=== PATIENT | female | born 1980 | race Caucasian/White ===

== ENCOUNTER 2016-04-12 16:51 | Emergency (ER) | payer OTHER ==
[2016-04-12 17:17] VITALS: BP 135/85; PULSE 76; TEMP 97.9; BMI 28.3
--- NOTE | 2016-04-12 18:29 | PDOC ---
History of Present Illness - General Chief Complaint: Urinary Problem Stated Complaint: R/O UTI Time Seen by Provider: 04/12/16 18:22 History Source: Patient Exam Limitations: No Limitations - History of Present Illness Initial Comments: 04/12/16 19:20 Chief complaint: abdomen discomfort with vaginal discharge History of present illness: Patient is a 36-year-old female with no significant medical history here today complaining of lower abdominal discomfort with vaginal discharge 3 days. Patient is pointing to pelvic area when she is says that she has lower abdominal discomfort. Patient reports that today abdominal discomfort is currently an 8 out of 10. Patient reports that she has been having pain when she is having sex recently. He reports that the vaginal discharge is not foul smelling. Patient denies any urinary symptoms, dysuria, hematuria, urgency, frequency, or any back pain, nausea, vomiting, or fever. Patient is a 3 para 3 with her last menstrual cycle on 03/22/2016. Patient reports being and having sex with her only. 04/12/16 19:24 Timing/Duration: getting worse Severity: moderate Associated Symptoms: reports: other (lower abdominal pain ) Past History - Past Medical History Allergies/Adverse Reactions: Allergies Allergy/AdvReac Type Severity Reaction Status Date / Time No Known Allergies Allergy Verified 04/12/16 17:14 Home Medications: Ambulatory Orders Doxycycline Hyclate [Vibramycin -] 100 mg PO BID #28 cap 04/12/16 Metronidazole [Flagyl -] 500 mg PO BID #28 tablet 04/12/16 Other medical history: DENIES - Reproductive History Tubal Ligation: Yes - Psycho/Social/Smoking Cessation Hx Suicidal Ideation: No Smoking History: Never smoked Information on smoking cessation initiated: No Hx Alcohol Use: No Drug/Substance Use Hx: No Review of Systems - Review of Systems Able to Perform ROS?: Yes Constitutional: No: Symptoms Reported HEENTM: No: Symptoms Reported Respiratory: No: Symptoms reported Cardiac (ROS): No: Symptoms Reported ABD/GI: Yes: Other (lower abdominal pain 5 days ) : No: Symptoms Reported Musculoskeletal: No: Symptoms Reported Integumentary: No: Symptoms Reported Neurological: No: Symptoms reported *Physical Exam - Vital Signs Last Vital Signs Temp Pulse Resp BP Pulse Ox 97.9 F 76 18 135/85 100 04/12/16 17:12 04/12/16 17:12 04/12/16 17:12 04/12/16 17:12 04/12/16 17:12 - Physical Exam General Appearance: Yes: Appropriately Dressed Respiratory/Chest: positive: Lungs Clear, Normal Breath Sounds Cardiovascular: positive: Regular Rhythm, Regular Rate, S1, S2 Female Pelvic Exam: positive: normal external exam, cervical os closed, normal adnexa, normal size ovaries, CMT, discharge (beige with clear mucous, cervix is friable), vaginal bleeding (at cervix, friable ). negative: lesions, Bartholin mass, Scalene Gland, adnexal tenderness Gastrointestinal/Abdominal: positive: Normal Bowel Sounds, Tender (suprapubic tenderness b/l ), Soft, Other (suprapubic discomfort b/l ). negative: Organomegaly, Distended, Guarding, Rebound, Spleenomegaly Musculoskeletal: positive: Other. negative: CVA Tenderness, CVA Tenderness (R) , CVA Tenderness (L), Decreased Range of Motion, Vertebral Tenderness Neurologic: positive: Alert, Normal Response Medical Decision Making - Medical Decision Making 04/12/16 18:53 Laboratory Tests Patient is a 36-year-old female with no significant medical history here today complaining of lower abdominal discomfort with vaginal discharge 3 days. Patient is pointing to pelvic area when she is says that she has lower abdominal discomfort. Patient reports that today abdominal discomfort is currently an 8 out of 10. Patient reports that she has been having pain when she is having sex recently. He reports that the vaginal discharge is not foul smelling. Patient denies any urinary symptoms, dysuria, hematuria, urgency, frequency, or any back pain, nausea, vomiting, or fever. Patient is a 3 para 3 with her last menstrual cycle on 03/22/2016. Patient reports being and having sex with her only. r/o STD r/o uti Plan: urine hcg negative urinalysis urine c & S chlamydia/GC amplification will treat for questionable chlamydia/GC PID pt. 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 04/12/16 04/12/16 15:17 15:17 Urine Color Colorless Urine Appearance Clear Urine pH 7.0 Ur Specific [place] 1.005 Urine Protein Negative Urine Glucose (UA) Negative Urine Ketones Negative Urine Blood 1+ H Urine Nitrite Negative Urine Bilirubin Negative Urine Urobilinogen Negative Ur Leukocyte Esterase 3+ H Urine HCG, Qual Negative 04/12/16 19:13 Laboratory Tests 04/12/16 15:17 Ur Leukocyte Esterase 3+ H Urine RBC 2 Urine WBC 9 Ur Epithelial Cells Few Urine Bacteria Rare 04/12/16 19:2 will treat for PID with 04/12/16 19:42 Ceftriaxone 250 mg IM Doxycycline 100 mg twice a day 14 days Flagyl 500 mg twice a day 14 days Follow-up with your dermatology sales representative within the next few days Do not engage in any sexual activities *DC/Admit/Observation/Transfer Diagnosis at time of Disposition: Pelvic inflammatory disease (PID) Diagnosis at time of Disposition: (Ruled Out): Infection within female pelvic cavity - Discharge Dispostion Disposition: HOME Condition at time of disposition: Stable - Prescriptions Prescriptions: Metronidazole [Flagyl -] 500 mg PO BID #28 tablet Doxycycline Hyclate [Vibramycin -] 100 mg PO BID #28 cap - Referrals Referrals: Lisa Rosa MD [Primary Care Provider] - - Patient Instructions Additional Instructions: Follow-up with your dermatology sales representative as soon as possible Refrain from sexual activities until cleared by your dermatology sales representative to resume Have your evaluated for possible actually sexually transmitted diseases Current emergency room if symptoms worsen Patient voiced understanding of discharge instructions and all questions were answered
[2016-04-12 18:49] LABS: URINE APPEARANCE CLEAR; URINE BILIRUBIN NEGATIVE (NEGATIVE); URINE COLOR COLORLESS; URINE GLUCOSE (UA) NEGATIVE (NEGATIVE); URINE KETONE NEGATIVE (NEGATIVE); URINE NITRITE NEGATIVE (NEGATIVE); URINE PROTEIN NEGATIVE (NEGATIVE); URINE UROBILINOGEN NEGATIVE E.U./dl (0.2-1.0)
[2016-04-12 18:51] LABS: URINE BLOOD 1+ (NEGATIVE); URINE LEUK ESTERASE 3+ (NEGATIVE)
[2016-04-12 18:53] LABS: URINE BACTERIA RARE /hpf (NONE SEEN); URINE RBC 2 /hpf (0-3); URINE WBC 9 /hpf (3-5)
[2016-04-12] MEDS ORDERED: ACETAMINOPHEN 500 MG TABLET (FP) ONE (19:11)
[2016-04-12] MEDS ORDERED: ACETAMINOPHEN 500 MG TABLET (FP) PO ONE (19:12)
== END 2016-04-12 20:20 | disposition home or self-care (01) ==
LOC: JERFT 16:51 → JER 16:51 → JERFT 20:20
PROC: 3E0233Z Introduction of Anti-inflammatory into Muscle, Percutaneous Approach (ICD-10-PCS; principal; 2016-04-12)
DX: N73.8 Other specified female pelvic inflammatory diseases (principal)
CPT/HCPCS: 36415; 81003; 81015; 84703; 87070; 87086; 87184; 87205; 87491; 87591; 99281-25

== ENCOUNTER 2017-05-15 13:51 | Emergency (ER) | payer SELFPAY ==
[2017-05-15 14:00] VITALS: BP 139/79; PULSE 97; TEMP 99.1; BMI 25.5
--- NOTE | 2017-05-15 15:57 | PDOC ---
History of Present Illness - General Chief Complaint: Cold Symptoms Stated Complaint: FEVER/HEADACHE Time Seen by Provider: 05/15/17 15:38 History Source: Patient Exam Limitations: No Limitations - History of Present Illness Initial Comments: 05/15/17 15:52 37 yr female with headache, cough , body aches for 3 days neg nvd neg abd pain. pt took 2 advil at 10am. no sick contacts at home Timing/Duration: reports: constant Severity: reports: moderate Possible Cause: Yes: no prior episodes Past History - Past Medical History Allergies/Adverse Reactions: Allergies Allergy/AdvReac Type Severity Reaction Status Date / Time No Known Allergies Allergy Verified 05/15/17 14:00 Home Medications: Ambulatory Orders NK [No Known Home Medication] 05/15/17 COPD: No - Reproductive History Tubal Ligation: Yes - Suicide/Smoking/Psychosocial Hx Smoking History: Never smoked Information on smoking cessation initiated: No Hx Alcohol Use: No Drug/Substance Use Hx: No Substance Use Type: None Respiratory Specific PMHX - Complaint Specific PMHX Angina: No Bronchitis: No Pneumonia: No Pulmonary Embolus: No TB (Tuberculosis): No Review of Systems - Review of Systems Able to Perform ROS?: Yes Is the patient limited [place]e proficient: No Constitutional: Yes: Symptoms Reported, Fever HEENTM: Yes: Nose Congestion Respiratory: Yes: Cough Neurological: Yes: Headache *Physical Exam - Vital Signs Last Vital Signs Temp Pulse Resp BP Pulse Ox 99.1 F 97 H 19 139/79 98 05/15/17 13:58 05/15/17 13:58 05/15/17 13:58 05/15/17 13:58 05/15/17 13:58 - Physical Exam General Appearance: Yes: Nourished, Appropriately Dressed HEENT: positive: EOMI, SONG, TMs Normal, Pharynx Normal, Nasal Congestion Neck: positive: Supple. negative: Tender Respiratory/Chest: positive: Lungs Clear, Normal Breath Sounds. negative: Chest Tender Cardiovascular: positive: Regular Rhythm, Regular Rate Gastrointestinal/Abdominal: positive: Normal Bowel Sounds, Soft. negative: Tender Musculoskeletal: positive: Normal Inspection Extremity: positive: Normal Capillary Refill, Normal Inspection, Normal Range of Motion Integumentary: positive: Normal Color, Dry, Warm Neurologic: positive: casting molder II-XII NML intact, Fully Oriented, Alert, Normal Mood/ Affect, Motor Strength 5/5 Medical Decision Making - Medical Decision Making 05/15/17 15:53 cc: fever, headache congestion cough non toxic , tolerating po fluids well no abd pain neg nvd most likely influenza like illness dc with supportive cares *DC/Admit/Observation/Transfer Diagnosis at time of Disposition: Viral respiratory illness - Referrals Referrals: Lisa Rosa MD [Primary Care Provider] - - Patient Instructions Additional Instructions: drink pleanty of clear fluids, gatorade, broth , apple juice follow with your doctor if any worsening symptoms take advil 600mg every 8hrs for fever or chills good handwashing, avoid crowds, parties , infants and elderly persons - Post Discharge Activity
== END 2017-05-15 16:00 | disposition home or self-care (01) ==
LOC: JERFT 13:51
DX: J11.1 Influenza due to unidentified influenza virus with other respiratory manifestations (principal)
CPT/HCPCS: 99281-25